=== PATIENT | male | born 1995 | race Caucasian/White ===

== ENCOUNTER 2025-04-23 09:30 | Emergency (ER) | payer OTHER ==
[2025-04-23 10:24] LABS: CORONAVIRUS COVID-19 NAA NEGATIVE (NEGATIVE); INFLUENZA A NAA POSITIVE (NEGATIVE); INFLUENZA B NAA NEGATIVE (NEGATIVE); RESPIRATORY SYNCYTIAL VIR NAA NEGATIVE (NEGATIVE)
== END 2025-04-23 10:40 | disposition home or self-care (01) ==
LOC: JP.ED 09:30
DX: J10.1 Influenza due to other identified influenza virus with other respiratory manifestations (principal); Z79.899 Other long term (current) drug therapy
CPT/HCPCS: 87637; 99283; 99284